=== PATIENT | female | born 1930 | race Caucasian/White ===

== ENCOUNTER 2017-04-05 14:20 | Inpatient (IN) | payer MEDICARE, OTHER ==
[~2017-04-05] VITALS: Ht 157.5 cm; Wt 81.6 kg
--- NOTE | ~2017-04-05 | OP ---
Record Of Operation [facility] [address] [place]. [address] NAME: STELLA SHAH : [birth year] STATUS : ADM IN PAT#: [id number] AGE: 86 ADM/REG DATE : 04/05/17 MR#: [id number] REPORT SERV DATE: 04/06/17 DICTATED BY: REGINA COLUNGA DATE: 04/05/17 REPORT STATUS : Draft TRANSCRIBED BY: MODNeo DATE: 04/05/17 DATE OF PROCEDURE: 04/05/2017 PREOPERATIVE DIAGNOSIS: Left proximal medial tibial abscess with osteomyelitis and possible septic total knee arthroplasty. 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 PROCEDURE PERFORMED: Left proximal medial tibial extensive irrigation and debridement to bone with subsequent arthrotomy and exploration of total knee arthroplasty with significant irrigation and debridement, and closure over Hemovac drain with application of Stimulan beads (vancomycin and tobramycin). DROSS SKIMMER: Tulio España and Lonnie Feliciano. ANESTHESIA: General. HISTORY AND INDICATIONS: Ms. Shah is an 86-year-old woman who is immunocompromised, coming to a left total knee arthroplasty three years ago. She did well initially, but last fall, came to a spontaneous left septic total knee arthroplasty, for which she had removal of implants, IV antibiotics with cement spacer, and reimplantation earlier this year. A few months postoperatively, she developed a significant cellulitis in her left lower extremity and has had lymphedema, and this was treated with IV antibiotics and then suppressive antibiotics, for which the proximal medial tibial had a small area of persistent redness, debridement following, recently began to worsen, she presented to the office yesterday, now presents for definitive treatment. PROCEDURE IN DETAIL: The patient was clearly identified. After obtaining informed consent, was brought to the operating room at [facility], where she was induced under general anesthesia as her left lower extremity was prepped and draped in the usual manner within sterile tourniquet and the area along the proximal medial tibia easily palpated, swollen with some thin skin, and through her previously utilized anterior approach from the midportion of the patella distally, the skin was divided, fascial planes were elevated. In entering this area of pocket, there was approximately 20 mL of pus expressed. The entire area then is carefully debrided that leads down to the medial tibial plateau region and up to an area just inferior to the tibial plate to the joint surface. The joint itself seems to be not involved. Subsequently, the entire area was copiously irrigated. We changed gloves and drapes, and at this point, an arthrotomy was made into the joint, from which a rather normal-appearing joint fluid was encountered. A medial parapatellar approach was opened somewhat more to debride the region and to explore more fully, but without evidence of any obvious involvement, seemed to be an osteomyelitic change with development of abscess. Given the patient's stiffness and neutropenia, we elected to proceed with copious irrigation and subsequent application of Stimulan beads over Hemovac drain and general skin closure with the hope to preserve with suppressive antibiotics her joint and this region. There was some skin tear that formed along the superolateral aspect of the leg, which was Record Of Operation [address] [address] NAME: STELLA SHAH : [birth year] STATUS : ADM IN [facility]#: [id number] AGE: 86 ADM/REG DATE : 04/05/17 MR#: [id number] REPORT SERV DATE: 04/06/17 DICTATED BY: REGINA COLUNGA DATE: 04/05/17 REPORT STATUS : Draft TRANSCRIBED BY: MODL DATE: 04/05/17 also closed. We used PDS and then juliet, nylon for the skin tear and this concluded. The leg was then carefully cleansed and dressed with Xeroform, 4x4s, ABD pad, sterile cast padding, and bias. Knee brace was applied with the leg locked in extension, at which point, the patient was then allowed to awaken and was transferred to the recovery room in stable condition having tolerated the procedure well. ESTIMATED BLOOD LOSS: 50. FLUIDS: 1000. TOURNIQUET TIME: 19 minutes which was utilized for the approach. PATHOLOGY: Sent specimen. MICROBIOLOGY: Sent specimens. COMPLICATIONS: None. SPONGE AND NEEDLE COUNTS: Reportedly correct. Antibiotics were administered after cultures were obtained. MIGUEL/HILL Regina Colunga M.D. / [id number] CC: Regina Colunga M.D.
--- NOTE | ~2017-04-05 | CN ---
Consultation Report [facility] [address] [place]. [address] NAME: DOLORES SHAH : [birth year] STATUS : ADM IN [facility]#: [id number] AGE: 86 ADM/REG DATE : 04/05/17 MR#: [id number] REPORT SERV DATE: 04/09/17 DICTATED BY: LUCA WEN DATE: 04/06/17 REPORT STATUS : Draft TRANSCRIBED BY: MODL DATE: 04/06/17 CONSULTATION DATE OF CONSULTATION: 04/06/2017 REASON FOR CONSULTATION: Pancytopenia. HISTORY OF PRESENT ILLNESS: Ms. Dolores Shah is an 86-year-old woman with a history of small cell lung cancer, treated for this with chemotherapy and radiation 15 to 20 years ago. She was seen by Dr. Fritz back in July again with pancytopenia during her hospitalization at that time. I have been reconsulted due ongoing marrow suppression and low blood counts. She has had a debridement of the left medial tibial bone with irrigation debridement for osteomyelitis. She was admitted with white count 2.0, hemoglobin 7.9, and platelet count of 140,000. Intraoperatively, her hemoglobin has dropped to 5-1/2 and she has received 2 units of red blood cells earlier this morning. The patient has had vacillating white count over at least the last nine months. In May of last year, her counts were fairly normal. In July, white count was in the 1.8 and 2.4 range. This remained somewhat low since then. The patient reports that she has had repeated septic joints and multiple surgeries for these. Previous anemia workup was fairly negative in July. Her albumin has improved to 3.0. Liver function tests are normal. B12 and folic acid were normal in July. The patient is receiving IV antibiotics for septic joint abscess osteomyelitis. She is now being followed by ID. PAST MEDICAL HISTORY: 1. Coronary artery disease with prior SD 20 years ago. 2. Hypertension. 3. Hypothyroidism. 4. Osteoarthritis. 5. Lumbar spinal stenosis. 6. Multiple septic joints. She denies history of rheumatoid arthritis. PAST SURGICAL HISTORY: Coronary artery bypass graft, left knee surgery with multiple signs of removal and reimplantation, right hip replacement, lumbar spine surgery. SOCIAL HISTORY: Not a drinker or smoker. No significant alcohol intake. She is . FAMILY HISTORY: Mother had pancreatic cancer, father had coronary artery disease, and multiple siblings with coronary artery disease and sibling with bladder cancer. MEDICATIONS: Her home medications are as follows: Eliquis 5 mg b.i.d., aspirin, carvedilol, Duricef, furosemide 20 mg daily, gemfibrozil, levothyroxine, probiotic, garlic, multivitamin tablet. REVIEW OF SYSTEMS: Consultation Report [facility] [address] [place]. [address] NAME: DOLORES SHAH : [birth year] STATUS : ADM IN PAT#: [id number] AGE: 86 ADM/REG DATE : 04/05/17 MR#: [id number] REPORT SERV DATE: 04/09/17 DICTATED BY: LUCA WEN DATE: 04/06/17 REPORT STATUS : Draft TRANSCRIBED BY: HILL DATE: 04/06/17 The patient is very fatigue. She reports that her pain is fairly well controlled at this time. She denies any nausea, vomiting, or diarrhea. She reports significant fatigue. She denies any neurological symptoms. PHYSICAL EXAMINATION: VITAL SIGNS: Temperature 98.7, heart rate is 79, BP 116/57. HEENT: Pupils are equal, round, reactive. Extraocular motors intact. There are no oral lesions. Anicteric sclerae. LUNGS: Clear to auscultation. No wheezes, rales, or rhonchi. CARDIAC: Regular rate and rhythm. Normal S1, S2. ABDOMEN: Soft, nontender, nondistended. ASSESSMENT AND PLAN: Ms. Dolores Shah is an 86-year-old woman with significant pancytopenia. Looking back over her lab, it seems like the marrow suppression has mostly been over the last nine months. I think much of this may be suppression from ongoing infection. She could have underlying myelodysplastic syndrome given her prior chemotherapy, particularly given the age and small cell. However, at this point, it is hard to tell with ongoing infection. Currently, she has had two units of packed red blood cells for her anemia. I am going to recheck iron saturation, B12, folic acid, but I think much of the anemia is chronic disease and should improve with treatment. I will continue to follow with you. Significant leukopenia and neutropenia, I think is related to her infection. Hopefully, will improve with correction of the infection. We debated whether to do a bone marrow biopsy, but given her functional status, I think we would have hard time intervening and I think particularly given her normal counts here I got, I think myelodysplastic syndrome is less likely. DBD/MODL Luca Wen M.D. / [id number] CC: Dl Colunga M.D.
[~2017-04-05 14:20] MED LIST: ACET500CAP PO; ACIDOPHILU2 PO; ACIDOPHILUS PO; ASAB PO; B1100 PO; BIST PO; C5 PO; CEFADROXIL1 GM PO; CENTRUM PO; COREG3 PO; COUMADIN4 MG PO; DSS PO; DURICEF PO; ELIQUIS 5 MG TAB5 MG PO; FERRETTS325 MG PO; FERROUS SULF325 M1 PO; FOLIC PO; GARLIC; GENASOFT100 MG PO; GERI-LANTA PO; HALF81 PO; HEPA50006 SC; L20 PO; L40 PO; LEVOTHYROXIN100 MCG PO; LEVOTHYROXIN25 MCG PO; LOPID6 PO; LOVENOX SC; MULTIPLE VIT PO; MULTIVIT/MIN; MULTIVITAMI1 PO; NEO-OINT15 TOP; NORCO1 TA2 PO; OXYCOD PO; PCET PO; PEP20 PO; PRAVACHOL40 MG PO; PREV15 PO; PROBIOTIC CAPSULES PO; PROBIOTIC PO; SENTAB PO; STOOL SOFTNER OTC PO; SYN.025B PO; SYN1 PO; T PO; ULORIC40 MG PO; ULORIC80 MG PO; Uloric PO; VITAMIN E PO; VITD PO; [UNRECOGNIZED DRUG - OTHER] PO; [UNRECOGNIZED DRUG - REMARK] PO
[2017-04-05 15:08] LABS: ASCORBIC ACID (UR NOT ORDER) NEG (NEG); BILIRUBIN, URINE NEGATIVE (NEG); KETONE, URINE NEGATIVE (NEG); LEUKOCYTE ESTERASE(NOT OR SMALL (NEG); WBC (NOT ORDERED) (RFLEX) 4 (0-5)
[2017-04-05 15:13] LABS: HEMOGLOBIN 7.9 g/dL (12.0-16.0); MEAN CORPUS HGB CONC 30.4 g/dL (32.0-36.0); MEAN CORPUSCULAR HEMOGLOB 27.8 pg (26.0-34.0); MEAN PLATELET VOLUME 10.3 fL (9.2-13.0); PLATELET COUNT 140 10/3/uL (150-400); RBC DISTRIBUTION WIDTH 19.5 % (12.0-16.0); RED CELL COUNT 2.84 10/6/uL (4.0-5.6)
[2017-04-05 15:14] LABS: MANUAL DIFF YES %; MEAN CORPUSCULAR VOLUME 91.5 fL (80-100)
[2017-04-05 15:19] LABS: INTERNATIONAL NORMAL RATI 1.4 UNITS (-); PARTIAL THROMBO TIME 38.7 SEC (22.5-37.2); PROTIME (NOT ORD) 16.6 SEC (12.0-14.5)
[2017-04-05 15:37] LABS: A/G RATIO 0.6 (0.7-1.9); CALCIUM, SERUM 9.1 MG/DL (8.5-10.4); CHLORIDE, SERUM 106 MMOL/L (96-112); CO2 (CARBON DIOXIDE) 29 MMOL/L (24-34); CREATININE 1.07 MG/DL (0.55-1.02); GFR AFRICAN AMERICAN 54 ML/MIN (>=60); GFR NON AFRICAN AMERICAN 46 ML/MIN (>=60); GLOBULIN 4.8 G/DL (2.5-4.1); GLUCOSE, SERUM 98 MG/DL (60-99); POTASSIUM, SERUM 4.3 MMOL/L (3.5-5.3); SGOT(AST) 33 U/L (5-40); SGPT(ALT) 26 U/L (5-65); SODIUM, SERUM 140 MMOL/L (135-148); TOTAL BILIRUBIN 0.6 MG/DL (0-1.2); TOTAL PROTEIN 7.8 G/DL (6.0-8.5)
[2017-04-05 15:39] LABS: ALKALINE PHOSPHATASE 139 U/L (45-117); BUN (BLOOD UREA NITROGEN) 24 MG/DL (6-23)
[2017-04-05 15:46] LABS: BAND NEUTROPHILS 2 %; LYMPHOCYTES 50 %; MONOCYTES 15 %; SEGMENTED NEUTROPHIL (0) 33 %; TOTAL NUCLEATED CELLS 100
[2017-04-05 15:47] LABS: ANISOCYTOSIS 1+ (5-10/OIF) (0-5/OIF); MACROCYTES 1+ (5-10/OIF) (0-5/OIF); MICROCYTES 1+ (5-10/OIF) (0-5/OIF); PLATELET ESTIMATE SLT DEC (ADEQUATE)
[2017-04-06 05:20] LABS: HEMATOCRIT 19.4 % (36.0-48.0); HEMOGLOBIN 5.8 g/dL (12.0-16.0)
[2017-04-06 05:30] LABS: BUN (BLOOD UREA NITROGEN) 20 MG/DL (6-23); CALCIUM, SERUM 8.2 MG/DL (8.5-10.4); CHLORIDE, SERUM 109 MMOL/L (96-112); CO2 (CARBON DIOXIDE) 29 MMOL/L (24-34); CREATININE 0.95 MG/DL (0.55-1.02); GFR AFRICAN AMERICAN 62 ML/MIN (>=60); GFR NON AFRICAN AMERICAN 53 ML/MIN (>=60); GLUCOSE, SERUM 98 MG/DL (60-99); POTASSIUM, SERUM 5.1 MMOL/L (3.5-5.3); SODIUM, SERUM 142 MMOL/L (135-148)
[2017-04-06 05:35] LABS: INTERNATIONAL NORMAL RATI 1.4 UNITS (-)
[2017-04-06 05:46] LABS: C-REACTIVE PROTEIN 24.3 MG/L (<8.0)
[2017-04-06 06:52] LABS: SED RATE 91 MM/HR (0-20)
[2017-04-07 06:39] LABS: MEAN CORPUS HGB CONC 31.8 g/dL (32.0-36.0); MEAN CORPUSCULAR HEMOGLOB 28.8 pg (26.0-34.0); MEAN CORPUSCULAR VOLUME 90.4 fL (80-100); MEAN PLATELET VOLUME 11.2 fL (9.2-13.0); PLATELET COUNT 117 10/3/uL (150-400); RBC DISTRIBUTION WIDTH 17.7 % (12.0-16.0); RED CELL COUNT 2.71 10/6/uL (4.0-5.6)
[2017-04-07 06:46] LABS: HEMATOCRIT 24.5 % (36.0-48.0); HEMOGLOBIN 7.8 g/dL (12.0-16.0); INTERNATIONAL NORMAL RATI 1.4 UNITS (-); PROTIME (NOT ORD) 17.2 SEC (12.0-14.5); WHITE BLOOD CELLS 1.8 10/3/uL (4.5-10.5)
[2017-04-07 06:47] LABS: MANUAL DIFF YES %
[2017-04-07 07:05] LABS: % IRON SAT 17 % (20-50); BUN (BLOOD UREA NITROGEN) 23 MG/DL (6-23); CALCIUM, SERUM 8.6 MG/DL (8.5-10.4); CHLORIDE, SERUM 104 MMOL/L (96-112); CO2 (CARBON DIOXIDE) 30 MMOL/L (24-34); CREATININE 1.04 MG/DL (0.55-1.02); GFR AFRICAN AMERICAN 56 ML/MIN (>=60); GFR NON AFRICAN AMERICAN 48 ML/MIN (>=60); GLUCOSE, SERUM 91 MG/DL (60-99); IRON BINDING CAPACITY 140 MCG/DL (225-410); IRON, SERUM 24 MCG/DL (35-150); POTASSIUM, SERUM 4.5 MMOL/L (3.5-5.3); SODIUM, SERUM 136 MMOL/L (135-148)
[2017-04-07 07:06] LABS: FOLATE 14.6 NG/ML (>5.2)
[2017-04-07 07:29] LABS: BAND NEUTROPHILS 7 %; EOSINOPHILS 1 %; EOSINOPHILS ABSOLUTE (CALC) 0.02 10/3/uL (0.0-0.53); LYMPHOCYTES 36 %; LYMPHOCYTES ABSOLUTE (CALC) 0.65 10/3/uL (0.67-4.30); MONOCYTES 22 %; NEUTROPHILS ABSOLUTE (CALC) 0.74 10/3/uL (2.02-8.40); SEGMENTED NEUTROPHIL (0) 34 %; TOTAL NUCLEATED CELLS 100
[2017-04-07 07:30] LABS: ANISOCYTOSIS 1+ (5-10/OIF) (0-5/OIF); PLATELET ESTIMATE SLT DEC (ADEQUATE); POLYCHROMASIA 1+ (2-5/OIF) (0-1/OIF); TARGET CELLS OCC (1-2/OIF) (0-1/OIF); TEARDROP SHAPED RBCS OCC (0-2/OIF)
[2017-04-08 05:41] LABS: HEMATOCRIT 24.7 % (36.0-48.0); HEMOGLOBIN 7.9 g/dL (12.0-16.0)
[2017-04-08 05:46] LABS: INTERNATIONAL NORMAL RATI 1.4 UNITS (-); PROTIME (NOT ORD) 17.3 SEC (12.0-14.5)
[2017-04-09 04:45] LABS: HEMATOCRIT 26.3 % (36.0-48.0); HEMOGLOBIN 8.4 g/dL (12.0-16.0); MANUAL DIFF YES %; MEAN CORPUS HGB CONC 31.9 g/dL (32.0-36.0); MEAN CORPUSCULAR HEMOGLOB 29.1 pg (26.0-34.0); MEAN PLATELET VOLUME 10.5 fL (9.2-13.0); PLATELET COUNT 133 10/3/uL (150-400); RBC DISTRIBUTION WIDTH 17.2 % (12.0-16.0); RED CELL COUNT 2.89 10/6/uL (4.0-5.6); WHITE BLOOD CELLS 2.1 10/3/uL (4.5-10.5)
[2017-04-09 04:50] LABS: INTERNATIONAL NORMAL RATI 1.6 UNITS (-); PROTIME (NOT ORD) 18.6 SEC (12.0-14.5)
[2017-04-09 05:09] LABS: ANISOCYTOSIS 1+ (5-10/OIF) (0-5/OIF); BAND NEUTROPHILS 2 %; LYMPHOCYTES 37 %; LYMPHOCYTES ABSOLUTE (CALC) 0.78 10/3/uL (0.67-4.30); MONOCYTES 23 %; MONOCYTES ABSOLUTE (CALC) 0.48 10/3/uL (0.21-1.20); NEUTROPHILS ABSOLUTE (CALC) 0.84 10/3/uL (2.02-8.40); PLATELET ESTIMATE SLT DEC (ADEQUATE); SEGMENTED NEUTROPHIL (0) 38 %; TOTAL NUCLEATED CELLS 100
[2017-04-09 05:10] LABS: HYPOCHROMIA 1+ (3-10/OIF) (0-2/OIF); MICROCYTES 1+ (5-10/OIF) (0-5/OIF)
== END 2017-04-09 17:16 | DRG 464 ==
LOC: ENRESERVTM → ENRESERV → ENRESERVDT → 3SO 14:20 → SDC/OF 14:20 → SDC 16:30 → EDSTATUS 16:30 → 3SO 22:22
PROVIDERS: Orthopaedic Surgery
PROC: 0JBP0ZZ Excision of Left Lower Leg Subcutaneous Tissue and Fascia, Open Approach (ICD-10-PCS; 2017-04-05)
PROC: 0QBH0ZZ Excision of Left Tibia, Open Approach (ICD-10-PCS; principal; 2017-04-05 16:30)
PROC: 30233N1 Transfusion of Nonautologous Red Blood Cells into Peripheral Vein, Percutaneous Approach (ICD-10-PCS; 2017-04-06)
DX: M86.162 Other acute osteomyelitis, left tibia and fibula (principal); L02.416 Cutaneous abscess of left lower limb; D61.818 Other pancytopenia; I25.10 Atherosclerotic heart disease of native coronary artery without angina pectoris; I10 Essential (primary) hypertension; Z86.718 Personal history of other venous thrombosis and embolism; Z85.118 Personal history of other malignant neoplasm of bronchus and lung; Z92.21 Personal history of antineoplastic chemotherapy; Z92.3 Personal history of irradiation; I25.2 Old myocardial infarction; E03.9 Hypothyroidism, unspecified; Z95.1 Presence of aortocoronary bypass graft; Z96.641 Presence of right artificial hip joint; Z79.01 Long term (current) use of anticoagulants; E78.5 Hyperlipidemia, unspecified
CPT/HCPCS: 36415; 71010; 73560-LT; 80048; 80053; 81001; 82746; 83540; 83550; 85014; 85018; 85025; 85610; 85652; 85730; 86140; 86850; 86900; 86901; 86920; 87015; 87070; 87075; 87077; 87086; 87102; 87116; 87186; 87205; 93005; 97110-GP; 97116-GP; 97162-GP; 97165-GO; 97535-GO; A9270-GY; C1713; G8978-CK-GP; G8979-CJ-GP; G8987-CK-GO; G8988-CJ-GO; J0690; J0692; J1170; J2370; J2405; J3010; J3260; J3370; P9016